=== PATIENT | male | born 1995 | race Caucasian/White ===

== ENCOUNTER 2019-11-10 20:17 | Emergency (ER) | payer SELFPAY ==
[~2019-11-10] VITALS: Ht 182.9 cm; Wt 90.7 kg
[2019-11-10 21:02] VITALS: BP 130/69
--- NOTE | 2019-11-10 21:09 | NUR ---
URINE SENT TO LAB
[2019-11-10] MEDS ORDERED: CEFTRIAXONE 500 MG VIAL IM ONE (21:30)
[2019-11-10] MEDS ORDERED: AZITHROMYCIN 250 MG TABLET PO ONE (21:30)
[2019-11-10] MEDS ORDERED: AZITHROMYCIN 250 MG TABLET ONE (21:33)
[2019-11-10] MEDS ORDERED: CEFTRIAXONE 500 MG VIAL ONE (21:33)
[2019-11-10] MEDS ORDERED: LIDOCAINE /MPF 1% VIAL 5 ML VIAL ONE (21:34)
== END 2019-11-10 21:52 | disposition home or self-care (01) ==
LOC: ER 20:20
DX: Z20.2 Contact with and (suspected) exposure to infections with a predominantly sexual mode of transmission (principal)
CPT/HCPCS: 87491; 87591; 96372; 99283; J0696; J3490

== ENCOUNTER 2020-01-09 20:04 | Emergency (ER) | payer MEDICAID ==
[~2020-01-09] VITALS: Ht 182.9 cm; Wt 90.7 kg
[2020-01-09 20:05] VITALS: BP 129/64
== END 2020-01-09 21:43 | disposition home or self-care (01) ==
LOC: ER 20:18
DX: H11.33 Conjunctival hemorrhage, bilateral (principal)

== ENCOUNTER 2020-01-26 05:51 | Emergency (ER) | payer MEDICAID ==
[~2020-01-26] VITALS: Ht 182.9 cm; Wt 90.7 kg
[2020-01-26 05:52] VITALS: BP 108/72
--- NOTE | 2020-01-26 05:55 | NUR ---
PT AAOX4. BIBSELF C/O RLE PAIN S/P "FAINTING IN THE BATHROOM" S/P SMOKING FENTANYL. PLACED IN BED 9 ON MONITOR AND PULSE OX. MD AT BEDSIDE FOR EVAL. NO ACUTE DISTRESS NOTED.
--- NOTE | 2020-01-26 06:22 | NUR ---
RADIOLOGY AT BEDSIDE
--- NOTE | 2020-01-26 06:39 | NUR ---
TECH AT BEDSIDE FOR LONGLEG SPLINT
--- NOTE | 2020-01-26 07:09 | NUR ---
PATIENT IS GIVEN CRUTCHES FOR MOBILITY. FAMILY HAS ARRIVED OUTSIDE OF EMERGENCY ROOM TO PICK PATIENT UP.
--- NOTE | 2020-01-26 07:09 | NUR ---
Patient discharged to home in stable condition. Written and verbal after care instructions given. Patient verbalizes understanding of instruction.
== END 2020-01-26 07:17 | disposition home or self-care (01) ==
LOC: ER 05:53
DX: S82.241A Displaced spiral fracture of shaft of right tibia, initial encounter for closed fracture (principal); S82.491A Other fracture of shaft of right fibula, initial encounter for closed fracture; F11.10 Opioid abuse, uncomplicated; X58.XXXA Exposure to other specified factors, initial encounter; Y93.89 Activity, other specified; Y92.89 Other specified places as the place of occurrence of the external cause; Y99.8 Other external cause status
CPT/HCPCS: 73590-TC